=== PATIENT | female | born 1955 | race African-American/Black ===

== ENCOUNTER 2022-03-31 12:38 | Emergency (ER) | payer MEDICARE, OTHER ==
[~2022-03-31] VITALS: Ht 91.4 cm; Wt 40.9 kg
[2022-03-31 12:38] VITALS: BP 146/69
[~2022-03-31 12:38] MED LIST: ACET325T21 PO; ASCO100T4 PO; ASPI-630 PO; BACL10TA PO; BISA10SU55 RC; CAPS42.514 TP; CLON1PAT TD; CRESTOR40 MG PO; CYAN500T17 PO; FENO54TA PO; FENT1PAT15 TP; FERR220S8 PO; FOLI0.8T5 PO; GABA300C18 PO; GUAI100L57 PO; HEPA1DIS11 SUBCUT; LIDO700A21 TP; MAGN24003 PO; METO50TA6 PO; PANT40TA77 IV; POLY17PO29 PO
--- NOTE | 2022-03-31 14:15 | PHYS DOC ---
Past Medical History Past Medical History: Anemia, CVA, GERD, High Cholesterol, Hypertension Additional Past Medical Histor: LEFT CAROTID STENOSIS, PVD Past Surgical History: Other Additional Past Surgical Histo: BILAT BKA Smoking Status: Former Smoker Alcohol Use: None General Adult EDM: Chief Complaint: GTUBE REPLACEMENT/MALFUNCTION HPI: HPI: Patient is a 66 year old 66-year-old female presenting after G-tube was expulsed accidentally while bathing the patient. Patient experienced no pain. Patient is unresponsive at baseline. Patient spontaneously opens eyes and tracks. Patient reportedly is at baseline. Patient presents from alf. Patient has no complaints Review of Systems: Review of Systems: Cannot assess due to mental status Heart Score: C/O Chest Pain: No Risk Factors: Risk Factors: DM, Current or recent (<one month) smoker, HTN, HLP, family history of CAD, obesity. Risk Scores: Score 0 - 3: 2.5% MACE over next 6 weeks - Discharge Home Score 4 - 6: 20.3% MACE over next 6 weeks - Admit for Clinical Observation Score 7 - 10: 72.7% MACE over next 6 weeks - Early Invasive Strategies Allergies: Allergies: Allergies Coded Allergies Type Severity Reaction Last Updated Verified Penicillins Allergy Intermediate 03/30/21 Yes Physical Exam: PE: Constitutional: Bilateral AKA's, does not respond to questions HENT: Normocephalic, atraumatic, bilateral external ears normal, oropharynx moist, no oral exudates, nose normal. [] Eyes: PERRLA, EOMI, conjunctiva normal, no discharge. [] Cardiovascular:Heart rate regular rhythm, no murmur [] Lungs & Thorax: Bilateral breath sounds clear to auscultation [] Abdomen: Bowel sounds normal, soft, no tenderness, no masses, no pulsatile masses. G-tube site clean dry and intact [] Skin: Warm, dry, no erythema, no rash. [] Back: No tenderness, no CVA tenderness. [] Neurologic: No focal deficit Current Patient Data: Vital Signs: Vital Signs Date Time Temp Pulse Resp B/P (MAP) Pulse Ox O2 Delivery O2 Flow Rate FiO2 03/31/22 12:38 98.3 81 16 146/69 (94) 98 Room Air 98.3 EKG: EKG: [] Radiology/Procedures: Radiology/Procedures: KUB confirms placement of G-tube, no free air Impression: G-tube expulsion Course & Med Decision Making: Course & Med Decision Making Pertinent Labs and Imaging studies reviewed. (See chart for details) 66-year-old female seen and evaluated by myself after G-tube expulsion. G-tube was replaced with a new 16 Chinese G-tube, replaced in normal fashion. Patient tolerated well. Inflated bulb with 5 cc of air. Confirmed with pH paper pH 4.5. KUB confirms placement, no free air. Patient discharged in normal stable condition. Dragon Disclaimer: Dragon Disclaimer: This electronic medical record was generated, in whole or in part, using a voice recognition dictation system. Departure Departure Impression: Primary Impression: Gastrojejunostomy tube dislodgement Disposition: [facility] Condition: GOOD Patient Instructions: Gastrostomy Tube, Adult Additional Instructions: Follow-up with your primary care physician, avoid dislodging G-tube WES CABRERA MD March 31, 2022 14:15
--- NOTE | 2022-03-31 15:59 | RAD ---
XR ABDOMEN 1V History: Gastrostomy tube replacement. Comparison: 02/26/2021. CT abdomen pelvis 02/26/2021 Technique: Portable radiograph of the abdomen. Findings: Devices: A percutaneous gastrostomy tube projects in the left upper quadrant over the expected region of the stomach. Bowel gas pattern: Nonspecific nonobstructive bowel gas pattern. Free air: No supine evidence for free air. Abnormal calcifications: Multiple calcified gallstones in the right upper quadrant. Atherosclerotic v ascular calcifications throughout the abdomen and pelvis. Calcified splenic granulomata. Bones: Degenerative changes of the lower lumbar spine and hips. Other: None. Impression: 1. Left upper quadrant percutaneous gastrostomy tube. No evidence of free air. 2. Cholelithiasis. Electronically signed by: Tee Lind MD (03/31/2022 2:14 PM) [id number]
== END 2022-03-31 15:22 ==
LOC: ER 12:38
DX: K94.23 Gastrostomy malfunction (principal); Y83.3 Surgical operation with formation of external stoma as the cause of abnormal reaction of the patient, or of later complication, without mention of misadventure at the time of the procedure; Y92.89 Other specified places as the place of occurrence of the external cause; K21.9 Gastro-esophageal reflux disease without esophagitis; E78.00 Pure hypercholesterolemia, unspecified; I10 Essential (primary) hypertension; Z86.73 Personal history of transient ischemic attack (TIA), and cerebral infarction without residual deficits; Z87.891 Personal history of nicotine dependence; Z88.0 Allergy status to penicillin
CPT/HCPCS: 43762; 74018; 99284-25